=== PATIENT | male | born 1945 | race Caucasian/White ===

== ENCOUNTER 2021-11-05 16:55 | Emergency (ER) | payer MEDICARE, SELFPAY ==
--- NOTE | ~2021-11-05 | CT_ITS ---
EXAMINATION: CT brain wo con INDICATION: Head injury COMPARISON: None TECHNIQUE: Standard unenhanced head CT. The dose-length product (DLP) was 681.00 mGy-cm. The mA was a djusted according to patient size. Iterative reconstruction technique was employed. FINDINGS: There is no acute intraparenchymal hemorrhage. No evidence of mass lesion. No evidence of a cute infarction. There is mild periventricular and subcortical hypodensity probably related to small vessel ischemic disease. There is mild prominence of the sulci and ventricles related to cerebral atr ophy. Intracranial calcified cerebral atherosclerosis is noted. There are no extra-axial collections. There is no mass effect or midline shift. The orbits and soft tissues are unremarkable. There is mil d mucosal thickening of the paranasal sinuses. IMPRESSION: 1. No acute intracranial abnormality. 2. Age related findings. Reviewed, dictated and finalized at location F.
--- NOTE | ~2021-11-05 | XR_ITS ---
EXAMINATION: XR wrist RT 2V INDICATION: Right wrist fracture post reduction TECHNIQUE: Two views of the right wrist are obtained. COMPARISON: 1728 hours FINDINGS: Again seen is a comminuted intra-articular fracture of the right distal radius. No fracture is been partially reduced and splinted since the comparison examination. Alignment has improved. An ulnar styloid avulsion is again noted. No additional fracture is seen. IMPRESSION: 1. Partially reduced and splinted comminuted intra-articular fracture of the right distal radius. 2. Ulnar styloid avulsion. Reviewed, dictated and finalized at location F. IMPRESSION: 1. Partially reduced and splinted comminuted intra-articular fracture of the ri ght distal radius. 2. Ulnar styloid avulsion.
--- NOTE | ~2021-11-05 | CT_ITS ---
EXAMINATION: CT lumbar spine wo con DATE: 11/05/2021 17:56 INDICATION: Low back pain TECHNIQUE: Computed tomography (CT) of the lumbar spine was performed without intravenous contrast. T he dose-length product (DLP) was 1071.30 mGy-cm. Iterative reconstruction was used. COMPARISON: None FINDINGS: There is subtle buckling in the anterior superior cortex of the T12 vertebral body. There i s no fracture of the lumbar spine. There are 4 mm of anterolisthesis of L4 on L5. There is mild loss of intervertebral disc space height at L5-S1. 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 IMPRESSION: 1. Mild spondylosis of the lumbar spine without acute lumbar fracture. 2. Possible nondisplaced fracture of the anterior/superior corner of the T12 vertebral body. Reviewed, dictated and finalized at location F. IMPRESSION: 1. Mild spondylosis of the lumbar spine without acute lumbar fracture. 2. Possible nondisplaced fracture of the anterior/superior corner of the T12 ve rtebral body.
--- NOTE | ~2021-11-05 | XR_ITS ---
EXAMINATION: XR wrist RT min 3V INDICATION: Right breast pain, initial encounter TECHNIQUE: Four views of the right wrist are obtained. COMPARISON: None available FINDINGS: There is a comminuted intra-articular fracture of the distal radius. There is a there is a fracture fragment dorsal to the distal radius. The carpal bones are slightly dorsally subluxed. There is an ulnar styloid avulsion. There is advanced osteoarthritis at the first carpometacarpal joint. S oft tissue swelling surrounds the fractures. IMPRESSION: 1. Comminuted intra-articular fracture of the distal radius with dorsal dislocation of the fracture f ragment and dorsal subluxation of the carpal bones relative to the radius. 2. Ulnar styloid avulsion. Reviewed, dictated and finalized at location F. IMPRESSION: 1. Comminuted intra-articular fracture of the distal radius with dorsal disloca tion of the fracture fragment and dorsal subluxation of the carpal bones relati ve to the radius. 2. Ulnar styloid avulsion.
--- NOTE | ~2021-11-05 | CT_ITS ---
EXAMINATION: CT cervical spine wo con DATE: 11/05/2021 17:55 INDICATION: Neck pain, head injury TECHNIQUE: Computed tomography (CT) of the cervical spine was performed without intravenous contrast. The dose-length product (DLP) was 492.51 mGy-cm. Automated exposure control and iterative reconstruc tion technique were employed. COMPARISON: None FINDINGS: There are 2 mm of anterolisthesis of C4 on C5 and C5 on C6. The vertebral body heights are normal. The intervertebral disc spaces are maintained. The odontoid is intact. There is no fracture. There is moderate facet osteoarthritis of the mid cervical spine. IMPRESSION: 1. Mild cervical spondylosis without acute findings. Reviewed, dictated and finalized at location F.
[2021-11-05 17:15] VITALS: BP 145/51; PULSE 83; RESP 16; TEMP 36.9; O2SAT 97
--- NOTE | 2021-11-05 17:53 | ED.FALL ---
HPI - Fall General Chief Complaint: Fall <Mireille Stone PA-C - Last Filed: 11/05/21 20:14> Stated Complaint: Fall, right wrist pain <HONORIO Cárdenas Last Filed: 11/05/21 20:14> Time Seen by Provider: 11/05/21 17:16 <Mireille Stone PA-C - Last Filed: 11/05/21 20:14> Source: patient <HONORIO Cárdenas Last Filed: 11/05/21 20:14> Mode of arrival: ambulatory <HONORIO Cárdenas Last Filed: 11/05/21 20:14> Limitations: no limitations <HONORIO Cárdenas Last Filed: 11/05/21 20:14> History of Present Illness HPI Narrative: This is a 76-year-old male that presents to the emergency department after a fall today with right wrist injury. Reports he had just walked up about 10 steps. He lost his balance and fell backwards. Reports falling back down all of the steps. He hit his head. He did not lose consciousness. Reports right wrist pain and swelling. Also reports low back pain. He is on a baby aspirin daily. Denies vision changes, vomiting, numbness, or weakness. <Mireille Stone PA-C - Last Filed: 11/05/21 20:14> Related Data Allergies/Adverse Reactions: Allergies Allergy/AdvReac Type Severity Reaction Status Date / Time No Known Allergies Allergy Verified 11/05/21 17:19 <HONORIO Cárdenas Last Filed: 11/05/21 20:14> Review of Systems Review of Systems: CONSTITUTIONAL: Denies fever EYES: Denies visual changes GASTROINTESTINAL: Denies vomiting MUSCULOSKELETAL: Reports back pain, joint pain, and myalgia. NEUROLOGIC: Denies numbness, or weakness. <HONORIO Cárdenas Last Filed: 11/05/21 20:14> All systems reviewed & are unremarkable except as noted in HPI and below <HONORIO Cárdenas Last Filed: 11/05/21 20:14> [facility] Past Medical History Medical History: Medical History (Updated 11/05/21 @ 20:07 by Mireille Stone PA-C) History of pacemaker History of type 2 diabetes mellitus <Mireille Stone PA-C - Last Filed: 11/05/21 20:14> Social History Social History: Social History (Updated 11/05/21 @ 17:56 by Mireille Stone PA-C) Smoking status: Never smoker <Mireille Stone PA-C - Last Filed: 11/05/21 20:14> Exam Narrative: GENERAL: Well-appearing, well-nourished, and in no acute distress. HEAD: Normocephalic. Superficial abrasions to the right forehead EYES: PERRLA and EOMI. ENT: Nares clear, no rhinorrhea or epistaxis. Mucous membranes moist. Oropharynx without tonsillar hypertrophy exudate or other lesions. Bilateral TMs pearly thacker non-bulging NECK: Supple. No adenopathy or masses. CHEST: Clear to auscultation. No respiratory distress. No wheezes rales or rhonchi HEART: Regular rate and rhythm. No murmur heard. Normal peripheral pulses. EXTREMITIES: Normal range of motion, except decreased range of motion of the right wrist. Mild edema about the right wrist. Normal radial pulses. Normal sensation SKIN: Warm, dry, no rash. NEURO: No focal deficits. Alert and oriented x3. Cranial nerves II through XII grossly intact. Normal gait PSYCH: Normal mood and affect <Mireille Stone PA-C - Last Filed: 11/05/21 20:14> Course COMBER FIXER/PA Physician Supervision I did not see this patient but the care plan was discussed with me, imaging reviewed I agree with the documentation as above <Michael Bush MD - Last Filed: 11/05/21 21:30> Consultations Consultation #1: Spoke with Dr. Min about patient and workup who agrees patient may follow up back home with a spine surgeon for further care of his T12 fracture. <Mireille Stone PA-C - Last Filed: 11/05/21 20:14> Date: 11/05/21 <Mireille Stone PA-C - Last Filed: 11/05/21 20:14> Vital Signs Vital signs: Vital Signs Temperature 36.9 C 11/05/21 17:15 Pulse Rate 83 11/05/21 17:15 Respiratory Rate 16 11/05/21 17:15 Blood Pressure 145/51 H 11/05/21 17:15 Pulse Oximetry 97 11/05/21 17:15 Oxygen Delivery Room Air 11/05/21
[2021-11-05 18:22] VITALS: BP 145/53; PULSE 80; RESP 20; O2SAT 100
[2021-11-05] MEDS: ONDANSETRON INJ 4 MG/2 ML VIAL IV PUSH (18:52)
[2021-11-05] MEDS: MORPHINE SULFATE (*CRX) 4 MG/ML INJ IV PUSH (18:52)
[2021-11-05 18:53] VITALS: BP 142/58; PULSE 74; RESP 16; O2SAT 97
[2021-11-05 19:23] VITALS: BP 131/60; PULSE 71; RESP 16; O2SAT 97
[2021-11-05 20:47] VITALS: BP 132/86; PULSE 90; RESP 16; O2SAT 98
== END 2021-11-05 20:48 | disposition home or self-care (01) ==
PROVIDERS: Emergency Provider Emergency Medicine
DX: S52.501A Unspecified fracture of the lower end of right radius, initial encounter for closed fracture (principal); S22.089A Unspecified fracture of T11-T12 vertebra, initial encounter for closed fracture; E11.9 Type 2 diabetes mellitus without complications; W10.9XXA Fall (on) (from) unspecified stairs and steps, initial encounter
CPT/HCPCS: 25605; 70450; 72125; 72131; 73100; 73110; 96374; 96375; 99285; A4565; J2270; J2405